=== PATIENT | female | born 1955 | race Caucasian/White ===

== ENCOUNTER 2017-07-22 11:02 | Emergency (ER) | payer BC ==
[~2017-07-22] VITALS: Ht 149.9 cm; Wt 99.8 kg
== END 2017-07-22 12:35 | disposition home or self-care (01) ==
LOC: CFTX 11:02 → CED 11:02 → CFTX 12:08
DX: S00.81XA Abrasion of other part of head, initial encounter (principal); I10 Essential (primary) hypertension; W22.03XA Walked into furniture, initial encounter; Y92.009 Unspecified place in unspecified non-institutional (private) residence as the place of occurrence of the external cause; Z23 Encounter for immunization
CPT/HCPCS: 90471; 90715; 99283